=== PATIENT | male | born 1980 | race Two or more races ===

== ENCOUNTER 2024-07-16 08:10 | Day surgery (SDC) | payer MEDICAID, SELFPAY ==
--- NOTE | 2024-07-15 10:55 | SUR.PREOP ---
Addendum entered by Kaylin Le RN 07/15/24 10:58: Liason was done over phone. Original Note: Pt was unable to come in for Liason appt, Dr Patel was notified and agreed for pt to do labs on arrival, pt was instructed to keep NPO after MN and shower before coming for surgery, Pt will be here 3 hrs before surgery.
--- NOTE | 2024-07-15 14:30 | SUR.PREOP ---
PT notified to come in at 0800 tomorrow for labs on arrival and surgery.
[2024-07-16] VITALS (10 sets, daily range): BP systolic 115–132; BP diastolic 75–88; PULSE 63–101; RESP 12–20; TEMP 36.1–36.6; O2SAT 95–100; BMI 24.1
[2024-07-16 09:06] LABS: Basophils # (Auto) 0.1 Thou/mm3 (0.0-0.2); Basophils % (Auto) 1 % (0-2.5); Eosinophils # (Auto) 0.1 Thou/mm3 (0.0-0.5); Eosinophils % (Auto) 1 % (0-10); Hematocrit 42.3 % (41.0-53.0); Hemoglobin 14.9 g/dL (13.5-16.0); Immature Granulocytes % (Auto) 0 % (0-0); Immature Granulocytes Auto 0.03 Thou/mm3 (0.00-0.00); Lymphocytes # (Auto) 3.2 Thou/mm3 (1.0-4.8); Lymphocytes % (Auto) 38 % (10-50); Mean Corpuscular HGB Conc 35.2 g/dl (31.0-37.0); Mean Corpuscular Hemoglobin 30.6 pg (25.0-35.0); Mean Corpuscular Volume 87 fL (80-100); Monocytes # (Auto) 0.7 Thou/mm3 (0.0-0.8); Monocytes % (Auto) 8 % (0-12); Neutrophils # (Auto) 4.3 Thou/mm3 (1.8-7.7); Neutrophils % (Auto) 52 % (37-80); Nucleated Red Blood Cell % 0 /100 WBC (0); Platelet Count 299 Thou/mm3 (140-440); RDW Standard Deviation 39.6 fL (35.1-43.9); Red Blood Count 4.87 Miln/mm3 (4.50-5.90); White Blood Count 8.3 Thou/mm3 (3.8-10.6)
[2024-07-16 09:27] LABS: Anion Gap 6 (7-16); BUN/Creatinine Ratio 19 Ratio (12-20); Blood Urea Nitrogen 15 mg/dL (9-23); Calcium 9.1 mg/dL (8.3-10.6); Carbon Dioxide 26.1 mMol/L (20.0-31.0); Chloride 107 mMol/L (98-107); Creatinine (Component) 0.8 mg/dL (0.6-1.3); Estimated Creatinine Clearance 98.7 mL/min (>60); Glucose 103 mg/dL (74-106); Osmolality,Calculated 278 (275-295); Potassium 3.8 mMol/L (3.4-5.1); Sodium 139 mMol/L (136-145); eGFR > 60 See Note
--- NOTE | 2024-07-16 10:21 | PD.SUROPNT ---
Date of Procedure 07/16/24 Pre Op Diagnosis Incarcerated umbilical hernia Post Op Diagnosis Incarcerated umbilical hernia Procedure Primary repair of incarcerated umbilical hernia Findings 1 cm umbilical hernia defect with incarcerated omentum Procedure Description Patient brought into the operating room in supine position. After administration of general endotracheal anesthesia, patient's abdomen prepped and draped in standard surgical manner. After administration of local anesthesia 3 cm semicircular incision was made below the umbilicus and dissection was deepened into soft tissue. The umbilicus was detached from anterior abdominal fascia. The hernia sac was identified and circumferentially dissected off surrounding tissue. The hernia sac was opened, the contents were incarcerated omentum was reduced. The hernia sac was excised. The defect was closed primarily with interrupted sutures using 0 Prolene. The umbilicus was reattached into anterior abdominal fascia. Soft tissue reapproximated with interrupted sutures using 2-0 Vicryl and the incision was closed with 4 Monocryl in subcuticular fashion. Dermabond applied. Patient tolerated the procedure well. He was extubated, breathing spontaneously and without difficulty and was transferred to postanesthesia care in stable condition. Instruments, needles and sponge counts were reported to be correct x 2. Anesthesia GETA and local Pathology / specimen Other (Hernia sac) Estimated Blood Loss 2 Condition Stable Disposition PACU Surgeon Darshana Patel MD Surgical Staff Operation Date: 07/16/24 11:45 Case Staff EVAPORATIVE COOLER INSTALLER: Timur Villalobos
--- NOTE | 2024-07-16 10:35 | SUR.PHASEI ---
Pt. arrived to recovery via GIACOMO schultz, no c/o pain or nausea at this time, responds to verbal commands, surgical incision to umbilicus, no active bleeding/redness noted, dermabond intact, IV flushed and patent, lung sounds clear, equal expansion xochitl., report received from Charanjit ALAN and Timur MATTHEWS.
--- NOTE | 2024-07-16 11:04 | SUR.PHASEII ---
1104: Pt. AAOx4, vitals stable, breathing unlabored, no complaint of pain or nausea, dressing to ABD CDI, no active bleed noted, report received from Keyana ALAN. Resuming care of pt.
[2024-07-16] MEDS: HYDROmorphone INJ 2 MG/ML VIAL 0.4 MG IV (11:37)
--- NOTE | 2024-07-16 12:06 | SUR.PHASEII ---
1206: Report given to Kathy Flores RN, Pt. AAOx4, vitals stable, breathing unlabored, no complaint of pain or nausea, dermabond to ABD CDI, no active bleed noted, pt. tolerated sips of juice well, ate jello well, pt. meets discharge criteria, pt. is disconnected from vitals machine and waiting for his ride.
--- NOTE | 2024-07-16 12:34 | SUR.PHASEII ---
pt awake, alert, able to follow commands, breathing unlabored, dressing to abdomen clean, dry, and intact, discharge instructions given with spouse present using telephone rehabilitation nurse Zay [id number], all questions answered, pt discharged via wheelchair with all belongings and copies of discharge paperwork.
== END 2024-07-16 12:34 | disposition home or self-care (01) ==
PROVIDERS: PCP Family Medicine; Referring Provider Surgery; Visit Provider Surgery
PROC: (CPT 49592; principal; 2024-07-16 11:30)
DX: K42.0 Umbilical hernia with obstruction, without gangrene (principal)
CPT/HCPCS: 49592; 36415; 80048; 85025; A4217; A4649; J0330; J0690; J2250; J2704; J3010; J3490; J1596

== ENCOUNTER 2024-10-14 11:29 | Emergency (ER) | payer MEDICAID, SELFPAY ==
[2024-10-14 11:30] VITALS: BMI 22.2
[2024-10-14 12:09] VITALS: BP 116/76; PULSE 68; RESP 16; TEMP 36.4; O2SAT 100
--- NOTE | 2024-10-14 12:19 | XR_ITS ---
Examination: PA lateral chest 2 views Technique: Upright PA lateral chest 2 views Exam date and time: October 14, 2024 1349 hrs. Comparison 07/05/2024 Indications: Coughing chest pain body beginning 3 days ago Findings: Mild hyperexpansion Mild opacity in the lingular segment left upper lobe Normal heart size No pulmonary edema Suspicious for 5 mm pulmonary nodule right upper lobe Impression: Suspicious for early pneumonia in the lingular segment left upper lobe, clinical correlation advised Recommend AP lordotic chest follow-up to exclude 5 mm pulmonary nodule right upper lobe
[2024-10-14 12:40] LABS: Strep A Rapid Negative (Negative)
--- NOTE | 2024-10-14 13:41 | EDNOTE_ITS ---
<Statement entered by Nancy Norton MD - 10/17/24 07:01> As co-signing physician, I was present and available for consult prn. I concur with the plan and care as documented by the midlevel provider. Upper Respiratory Inf. RME/HPI General Chief Complaint: Chest Pain Stated Complaint: CHEST PAIN, ABD PAIN, NAUSEA BODYACHE, X3DA Time Seen by Provider: 10/14/24 12:18 Arrival date/time: 10/14/24 11:29 44-year-old male presents emergency dept today for complaints of sore throat, cough, congestion and generalized bodyaches ongoing x 3 days Limitations: no limitations Related Data Previous Rx's ?Medication ?Instructions ?Recorded ibuprofen 800 mg tablet 800 mg PO TID PRN pain #30 t abs 03/19/22 docusate sodium 100 mg capsule 100 mg PO BID #40 caps 07/16/24 (Colace) hydrocodone 5 mg-acetaminophen 325 1 tab PO Q6H PRN pa in (scale score 07/16/24 mg tablet 7-10) #15 tabs ibuprofen 600 mg tablet 600 mg PO Q8H PRN pain (scal e 07/16/24 score 4-6) #15 tabs azithromycin 500 mg tablet See Rx Instructions PO .COM PLEX #6 10/14/24 tabs benzonatate 100 mg capsule 100 mg PO TID #14 caps 04/01 ibuprofen 600 mg tablet 600 mg PO Q6H #30 tabs 10/14 Allergies Allergy/AdvReac Type Severity Reaction Status Date / Time No Known Allergies Allergy Verified 10/14/24 11:32 Review of Systems Review of Systems Systems Reviewed: All systems reviewed, normal except as documented Constitutional Constitutional: Reports system reviewed and no additional complaints, except as documented, Denies fever(s) and Denies headache(s) Eyes Eyes: Reports system reviewed and no additional complaints, except as documented and Denies blurry vision ENT Ears, Nose, Mouth, and Throat: Reports system reviewed and no additional complaints, except as documented, Denies headache(s), Reports nasal congestion and Reports nasal discharge Cardiovascular Cardiovascular: Reports system reviewed and no additional complaints, except as documented, Denies chest pain and Denies dyspnea Respiratory Respiratory: Reports system reviewed and no additional complaints, except as documented, Reports chest congestion, Reports cough and Denies dyspnea Gastrointestinal Gastrointestinal: Reports system reviewed and no additional complaints, except as documented and Denies abdominal pain Integumentary/Breasts Skin/Breast: Reports system reviewed and no additional complaints, except as documented and Denies rash Neurologic Neurologic: Reports system reviewed and no additional complaints, except as documented, Reports as per HPI and Denies headache(s) Past Medical History Past Medical History NEUROLOGIC: Negative Neurological Disorders or Seizures CARDIAC: Negative Cardiac Disorders or Congestive Heart Failure RESPIRATORY: Negative Chronic Obstructive Pulmonary Disease (COPD) GASTROINTESTINAL: Negative Gastrointestinal Disorders or Hepatitis GENITOURINARY: Negative Genitourinary Disorders or Renal Disease MUSCULOSKELETAL: Positive Fractures (nose); Negative Musculoskeletal Disorders ENDOCRINE: Negative Endocrine Disorders, Diabetes Mellitus Type 1 or Diabetes Mellitus Type 2 HEMATOLOGIC: Negative Blood Disorders PSYCHO/SOCIAL: Positive 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, clean now) OTHER HISTORY: Positive Hospitalization (alchohol); Negative Autoimmune Disease, Shingles, Blood Transfusions, Blood Transfusion Reaction, Anesthesia Reactions or Cancer Family History FAMILY HISTORY: Positive Family Surgery; Negative Family Psychiatric Problems, Family Respiratory Disorders, Family Cardiac Disorders, Family Gastrointestinal Problems, Family Cancer or Family Anesthesia Reaction Surgical History SURGICAL: Positive Nose Surgery (septoplasty) Social History SMOKING STATUS: Never smoker ED Exam General Limitations: Present no limitations General appearance: Present alert and in no apparent distress Head Head exam: Present atraumatic, normocephalic and normal inspection Eye Eye exam: Present normal appearance, PERRL and EOMI; Absent conjunctival injection ENT ENT exam: Present normal exam, normal oropharynx and mucous membranes moist Neck Neck exam: Present normal inspection, full ROM and trachea midline Chest Chest inspection: Present normal inspection and symmetric chest wall rise Respiratory Respiratory exam: Present normal lung sounds bilaterally; Absent respiratory distress, wheezes, stridor, accessory muscle use or prolonged expiratory phase Cardiovascular Cardiovascular exam: Present regular rate, normal rhythm and normal heart sounds Abdominal Exam Abdominal exam: Present soft and normal bowel sounds; Absent distention, tenderness, guarding, rebound or rigidity Extremities Exam Extremities exam: Present normal inspection and full ROM Back Exam Back exam: Present normal inspection and full ROM Neurological Exam Neurological exam: Present alert, oriented X3, CN II-XII intact, normal gait and reflexes normal; Absent motor sensory deficit Psychiatric Psychiatric exam: Present normal affect and normal mood Skin Skin exam: Present warm, dry, intact and normal color Course Quality Measures none Orders Category Date Time Status Bedside Influenza A&B Antigen Test NOW Care 10/14/24 12:19 Completed XR chest 2V Stat Exams 10/14/24 12:19 Completed Strep A Rapid Stat Lab 10/14/24 12:22 Completed Vital Signs Vital signs: Vital Signs Temperature 97.5 F 10/14/24 12:09 Pulse Rate 68 10/14/24 12:09 Respiratory Rate 16 10/14/24 12:09 Blood Pressure 116/76 10/14/24 12:09 Pulse Oximetry (%) 100 10/14/24 12:09 Oxygen Delivery Method Room Air 10/14/24 12:09 O2 saturation 100% room air within the limits Upper Respiratory Infection MDM Narrative MDM Narrative:: 44-year-old male presents emergency dept today for complaints of sore throat, cough, congestion and generalized bodyaches ongoing x 3 days On exam patient well-appearing patient is not appear ill or toxic in no acute distress Patient checked for flu and strep both which are negative Chest x-ray obtained consistent with pneumonia patient is a possible pulmonary nodule Explained to the patient after his treatment with antibiotics he is to have repeat x-ray Patient discharged home in no distress to follow-up with primary care doctor in the next 24 to 48 hours and for any worsening symptoms to return to the ER immediately Patient data External records reviewed:: [facility] previous records Clinical information provided by:: patient Social determinants that could affect healthcare access:: none Patient has the following chronic illnesses:: none How is presenting disease/condition affected by chronic disease/condition?: no chronic disease Evaluation data The following diagnostics were reviewed and interpreted by me:: lab results and radiology exam(s) Lab and/or radiology exams considered but not ordered:: Labs and radiology obtained Interpretation Summary: Reviewed by me Medications / Prescriptions Medications or Prescriptions considered but not ordered:: Given Medication administrations:: Given Consultations Consultation(s) initiated? (list below): No Diagnosis Upper Respiratory Differential Diagnosis: upper respiratory infection, sinusitis and viral infection Most likely diagnosis given after review of the tests above:: Pneumonia Admission Indicated Admission indicated?: not indicated Admission Request Was there a request for admission?: No Disposition Plan Disposition Plan: Discharge Discharge Attestation Discharge Attestation: The patient and all family members were given an opportunity to ask questions and understood the discharge instructions. Discharge instructions specifically effects, indications for sooner follow up or return to the emergency department, and the expected course of current diagnosis. Patient condition: Stable Discharge Plan Plan Patient Disposition: HOME (Self Care) Disposition Comment: stable Prescriptions/Referrals Prescriptions/Med Rec: New benzonatate 100 mg capsule 100 mg PO TID Qty: 14 0RF ibuprofen 600 mg tablet 600 mg PO Q6H Qty: 30 0RF azithromycin 500 mg tablet See Rx Instructions .ROUTE .COMPLEX Qty: 6 0RF Rx Instructions: take 500 mg today (day 1), then 250 mg for 4 days (days 2-5) No Action docusate sodium [Colace] 100 mg capsule 100 mg PO BID Qty: 40 0RF hydrocodone-acetaminophen 5-325 mg tablet 1 tab PO Q6H MDD 4 PRN (Reason: pain (scale score 7-10)) Qty: 15 0RF ibuprofen 600 mg tablet 600 mg PO Q8H PRN (Reason: pain (scale score 4-6)) Qty: 15 0RF ibuprofen 800 mg tablet 800 mg PO TID PRN (Reason: pain) Qty: 30 0RF Referrals: Floyd Saab MD [Primary Care Provider] - In 1 week Problem List Clinical Impression: Pneumonia, Cough Patient/Caregiver Discharge Instructions Education Materials: What Is Pneumonia? Additional Instructions: Please follow up with your primary care doctor in the next 24-48hrs for any worsening symptoms return here immediately Please have repeat x-ray in 1 week to rule out pulmonary nodule Print Language: Danish Stand Alone Forms: Bri Award Info., Work/School Release, Patient Portal Info Letter PA/TIRE RECAPPING MACHINE OPERATOR Supervising Physician PA/TIRE RECAPPING MACHINE OPERATOR Supervising Physician: Dr. NORTON
== END 2024-10-14 14:45 | disposition home or self-care (01) ==
PROVIDERS: Nurse Practitioner Primary Care; Emergency Provider Emergency Medicine; PCP Family Medicine
DX: J18.9 Pneumonia, unspecified organism (principal)
CPT/HCPCS: 71046; 87400; 87651; 99283

== ENCOUNTER 2024-10-20 21:33 | Emergency (ER) | payer MEDICAID, SELFPAY ==
[2024-10-20 21:57] VITALS: BP 126/82; PULSE 77; RESP 18; TEMP 36.8; O2SAT 97; BMI 22.1
--- NOTE | 2024-10-20 22:57 | XR_ITS ---
Examination: PA lateral chest 2 views Technique: Upright PA lateral chest 2 views Exam date and time: October 20, 2024, 11 5:00 PM Indications: Pneumonia diagnosed 6 days ago Findings: Right upper lobe pneumonia has cleared Persistent pneumonia lingular segment Normal heart size Impression: Persistent pneumonia in the lingular segment left upper lobe
[2024-10-20 23:48] LABS: Basophils # (Auto) 0.1 Thou/mm3 (0.0-0.2); Basophils % (Auto) 1 % (0-2.5); Eosinophils # (Auto) 0.1 Thou/mm3 (0.0-0.5); Eosinophils % (Auto) 2 % (0-10); Hematocrit 40.5 % (41.0-53.0); Hemoglobin 14.3 g/dL (13.5-16.0); Immature Granulocytes % (Auto) 0 % (0-0); Immature Granulocytes Auto 0.01 Thou/mm3 (0.00-0.00); Lymphocytes # (Auto) 3.7 Thou/mm3 (1.0-4.8); Lymphocytes % (Auto) 42 % (10-50); Mean Corpuscular HGB Conc 35.3 g/dl (31.0-37.0); Mean Corpuscular Hemoglobin 30.1 pg (25.0-35.0); Mean Corpuscular Volume 85 fL (80-100); Monocytes # (Auto) 0.9 Thou/mm3 (0.0-0.8); Monocytes % (Auto) 10 % (0-12); Neutrophils % (Auto) 45 % (37-80); Nucleated Red Blood Cell % 0 /100 WBC (0); Platelet Count 298 Thou/mm3 (140-440); RDW Standard Deviation 37.6 fL (35.1-43.9); Red Blood Count 4.75 Miln/mm3 (4.50-5.90); White Blood Count 8.8 Thou/mm3 (3.8-10.6)
[2024-10-21 00:14] LABS: B-Type Natriuretic Peptide < 20 pg/mL (0-100)
[2024-10-21 00:22] LABS: Alanine Aminotransferase 16 U/L (10-49); Albumin, Serum 4.4 gm/dL (3.5-5.0); Albumin/Globulin Ratio 1.5 (1.2-2.2); Alkaline Phosphatase 49 U/L (46-116); Anion Gap 8 (7-16); Aspartate Amino Transferase 24 U/L (0-34); BUN/Creatinine Ratio 23 Ratio (12-20); Bilirubin,Total 0.6 mg/dL (0.3-1.2); Blood Urea Nitrogen 23 mg/dL (9-23); Calcium 9.1 mg/dL (8.3-10.6); Calcium (Corrected) 9.1 mg/dL (8.5-10.1); Carbon Dioxide 24.9 mMol/L (20.0-31.0); Chloride 106 mMol/L (98-107); Estimated Creatinine Clearance 80.4 mL/min (>60); Glucose 98 mg/dL (74-106); LDH (Lactate Dehydrogenase) 230 U/L (120-246); Osmolality,Calculated 281 (275-295); Potassium 3.1 mMol/L (3.4-5.1); Procalcitonin 0.07 ng/ml (0.0-0.49); Sodium 139 mMol/L (136-145); Total Protein 7.4 gm/dL (5.7-8.2); eGFR > 60 See Note
--- NOTE | 2024-10-21 00:52 | PD.EDADULT ---
ED General RME/HPI General Chief complaint: Weakness Stated complaint: WEAKNESS Time Seen by Provider: 10/20/24 22:36 Arrival date/time: 10/20/24 21:33 44 yo male presents to the ED with a complaint of weakness and cough. He was seen here 1 week ago and diagnosed with Bilateral Pneumonia. He was given Azithromycin which he completed 2 days ago. He was feeling better until yesterday when he began feeling weak with a worsening cough. Mode of arrival: ambulatory Limitations: no limitations Related Data Previous Rx's ?Medication ?Instructions ?Recorded ibuprofen 800 mg tablet 800 mg PO TID PRN pain #30 tabs 03/19/22 docusate sodium 100 mg capsule 100 mg PO BID #40 caps 07/16/24 (Colace) hydrocodone 5 mg-acetaminophen 325 1 tab PO Q6H PRN pain (scale score 07/16/24 mg tablet 7-10) #15 tabs ibuprofen 600 mg tablet 600 mg PO Q8H PRN pain (scale 07/16/24 score 4-6) #15 tabs azithromycin 500 mg tablet See Rx Instructions PO .COMPLEX #6 10/14/24 tabs benzonatate 100 mg capsule 100 mg PO TID #14 caps 10/14/24 ibuprofen 600 mg tablet 600 mg PO Q6H #30 tabs 10/14/24 albuterol sulfate 90 mcg/actuation 2 puff inhalation Q4H PRN 10/21/24 aerosol inhaler shortness of breath or wheezing #6.7 grams amoxicillin 875 mg-potassium 1 tab PO BID PNEUMONIA #20 tabs 10/21/24 clavulanate 125 mg tablet doxycycline monohydrate 100 mg 100 mg PO BID PNEUMONIA #20 caps 10/21/24 capsule promethazine-DM 6.25 mg-15 mg/5 mL 10 ml PO Q8HR PRN cough #118 mL 10/21/24 oral syrup loperamide 2 mg capsule (Imodium 2 mg PO Q6H PRN loose stool #14 10/23/24 A-D) caps Allergies Allergy/AdvReac Type Severity Reaction Status Date / Time No Known Allergies Allergy Verified 10/23/24 07:42 Review of Systems Review of Systems Systems Reviewed: All systems reviewed, normal except as documented Past Medical History Past Medical History NEUROLOGIC: Negative Neurological Disorders or Seizures CARDIAC: Negative Cardiac Disorders or Congestive Heart Failure RESPIRATORY: Negative Chronic Obstructive Pulmonary Disease (COPD) GASTROINTESTINAL: Negative Gastrointestinal Disorders or Hepatitis GENITOURINARY: Negative Genitourinary Disorders or Renal Disease MUSCULOSKELETAL: Positive Fractures (nose); Negative Musculoskeletal Disorders ENDOCRINE: Negative Endocrine Disorders, Diabetes Mellitus Type 1 or Diabetes Mellitus Type 2 HEMATOLOGIC: Negative Blood Disorders PSYCHO/SOCIAL: Positive 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, clean now) OTHER HISTORY: Positive Hospitalization (alchohol); Negative Autoimmune Disease, Shingles, Blood Transfusions, Blood Transfusion Reaction, Anesthesia Reactions or Cancer Family History FAMILY HISTORY: Positive Family Surgery; Negative Family Psychiatric Problems, Family Respiratory Disorders, Family Cardiac Disorders, Family Gastrointestinal Problems, Family Cancer or Family Anesthesia Reaction Surgical History SURGICAL: Positive Nose Surgery (septoplasty) Social History SMOKING STATUS: Never smoker ED Exam Narrative Physical exam: Alert and oriented 44-year-old male, no acute distress. TMs, nares, pharynx are normal. Lungs are diminished at the bases with rhonchi noted. Regular rate and rhythm, abdomen is soft and nontender. General Limitations: Present no limitations General appearance: Present alert and in no apparent distress Head Head exam: Present atraumatic and normal inspection Eye Eye exam: Present normal appearance; Absent scleral icterus or conjunctival injection ENT ENT exam: Present normal exam Neck Neck exam: Present normal inspection Chest Chest inspection: Present normal inspection Respiratory Respiratory exam: Present other (Diminished breath sounds at bases with rhonchi); Absent respiratory distress Cardiovascular Cardiovascular exam: Present regular rate and normal rhythm Abdominal Exam Abdominal exam: Present soft; Absent distention or tenderness Rectal Exam Rectal exam: Present deferred Extremities Exam Extremities exam: Present normal inspection Back Exam Back exam: Present full ROM Neurological Exam Neurological exam: Present alert and oriented X3 Psychiatric Psychiatric exam: Present normal affect and normal mood Skin Skin exam: Present warm, dry, intact and normal color Course Course Course Narrative: 44 yo male presents to the ED with a complaint of weakness and cough. He was seen here 1 week ago and diagnosed with Bilateral Pneumonia. He was given Azithromycin which he completed 2 days ago. He was feeling better until yesterday when he began feeling weak with a worsening cough. Alert and oriented 44-year-old male, no acute distress. TMs, nares, pharynx are normal. Lungs are diminished at the bases with rhonchi noted. Regular rate and rhythm, abdomen is soft and nontender. COVID, influenza A/B swabs negative. CBC reveals normal white count, potassium is mildly low at 3.1 LFTs and renal function are normal. Procalcitonin is normal at 0.07. Cocci serology is ordered and pending. XR Chest: Findings: Right upper lobe pneumonia has cleared Persistent pneumonia lingular segment Normal heart size Impression: Persistent pneumonia in the lingular segment left upper lobe Quality Measures none Orders Category Date Time Status Bedside COVID-19 Antigen Test NOW Care 10/20/24 22:57 Completed Bedside COVID-19 Antigen Test NOW Care 10/21/24 00:18 Completed Bedside Influenza A&B Antigen Test NOW Care 10/20/24 22:59 Completed Bedside Influenza A&B Antigen Test NOW Care 10/21/24 00:18 Completed XR chest 2V Stat Exams 10/20/24 22:57 Completed B-Type Natriuretic Peptide Stat Lab 10/20/24 23:31 Completed CBC Stat Lab 10/20/24 22:57 Completed CMP [Comprehensive Metabolic Panel] Stat Lab 10/20/24 23:31 Completed Cocci Serology IgM with reflex to IgG [Cocci Serology, Lab 10/21/24 00:40 Completed Unk History] Stat LDH (Lactate Dehydrogenase) Stat Lab 10/20/24 23:31 Completed Lactic Acid [Lactate (Lactic Acid)] Stat Lab 10/20/24 23:31 Completed Magnesium Stat Lab 10/20/24 23:31 Completed Procalcitonin Stat Lab 10/20/24 23:31 Completed Potassium Chloride [K-Dur] Med 10/21/24 01:13 Discontinued 40 meq PO X1 ONE cefTRIAXone [Rocephin] 1,000 mg Med 10/21/24 00:37 Discontinued Lidocaine 1% 20 ml [Xylocaine 1% 20 ML] 2.1 ml IM X1 Vital Signs Vital signs: Vital Signs Temperature 98.2 F 10/20/24 21:57 Pulse Rate 77 10/20/24 21:57 Respiratory Rate 18 10/20/24 21:57 Blood Pressure 126/82 10/20/24 21:57 Pulse Oximetry (%) 97 10/20/24 21:57 Oxygen Delivery Method Room Air 10/20/24 21:57 Discharge Plan Plan Patient Disposition: HOME (Self Care) Discharge Disposition comment: Stable Prescriptions/Referrals Prescriptions/Med Rec: New doxycycline monohydrate 100 mg capsule 100 mg PO BID Qty: 20 0RF amoxicillin-pot clavulanate 875-125 mg tablet 1 tab PO BID Qty: 20 0RF albuterol sulfate 90 mcg/actuation HFA aerosol inhaler 2 puff inhalation Q4H PRN (Reason: shortness of breath or wheezing) Qty: 6.7 0RF promethazine-DM 6.25-15 mg/5 mL syrup 10 ml PO Q8HR PRN (Reason: cough) Qty: 118 0RF No Action docusate sodium [Colace] 100 mg capsule 100 mg PO BID Qty: 40 0RF hydrocodone-acetaminophen 5-325 mg tablet 1 tab PO Q6H MDD 4 PRN (Reason: pain (scale score 7-10)) Qty: 15 0RF ibuprofen 600 mg tablet 600 mg PO Q8H PRN (Reason: pain (scale score 4-6)) Qty: 15 0RF benzonatate 100 mg capsule 100 mg PO TID Qty: 14 0RF ibuprofen 600 mg tablet 600 mg PO Q6H Qty: 30 0RF azithromycin 500 mg tablet See Rx Instructions .ROUTE .COMPLEX Qty: 6 0RF Rx Instructions: take 500 mg today (day 1), then 250 mg for 4 days (days 2-5) ibuprofen 800 mg tablet 800 mg PO TID PRN (Reason: pain) Qty: 30 0RF loperamide [Imodium A-D] 2 mg capsule 2 mg PO Q6H PRN (Reason: loose stool) Qty: 14 0RF Referrals: No Primary/Family,Physician [Primary Care Provider] - In 1 week Problem List Clinical Impression: Pneumonia Patient/Caregiver Discharge Instructions Education Materials: When You Have Pneumonia, ED Pneumonia (Adult) Additional Instructions: Follow-up with your primary care physician in 24 to 48 hours. Return to the ED for any new or worsening symptoms. Print Language: Amharic Stand Alone Forms: Bri Award Info., Patient Portal Info Letter PA/SURVEY SUPERINTENDENT Supervising Physician PA/SRIDHAR Supervising Physician: Dr Simmons
[2024-10-21] MEDS: cefTRIAXone 1,000 MG, LIDOCAINE 1% 20 ML 2.1 ML IM (00:53)
[2024-10-21] MEDS: POTASSIUM CHLORIDE 20 mEq TABCR 40 MEQ PO (01:27)
[2024-10-21 12:50] LABS: Cocci Serology, IgM Negative (Negative)
[2024-10-22 11:37] LABS: Cocci Serology, IgG Negative (Negative)
== END 2024-10-21 01:30 | disposition home or self-care (01) ==
PROVIDERS: Physician Assistant; Emergency Provider Emergency Medicine
DX: J18.9 Pneumonia, unspecified organism (principal)
CPT/HCPCS: 36415; 71046; 80053; 83605; 83615; 83735; 83880; 84145; 85025; 86331; 86635; 87400; 87634; 87811; 96372; 99283; J0696; J3490; A9270

== ENCOUNTER 2024-10-23 07:39 | Emergency (ER) | payer MEDICAID, SELFPAY ==
[2024-10-23 07:40] VITALS: BMI 21.4
[2024-10-23 07:50] VITALS: BP 125/78; PULSE 73; RESP 20; TEMP 37; O2SAT 97
--- NOTE | 2024-10-23 07:55 | EDNOTE_ITS ---
Nausea/Vomit./Diarrhea-RME/HPI General Chief complaint: Nausea/Vomiting/Diarrhea Stated complaint: DIARRHEA & PNA Time Seen by Provider: 10/23/24 07:51 Arrival date/time: 10/23/24 07:39 44-year-old male presents to the emergency department today for concerns for diarrhea. Patient is currently being treated for pneumonia. There are no other associated symptoms or aggravating factors no other modifying factors, patient denies taking medication before coming to ER today Limitations: no limitations Related Data Previous Rx's ?Medication ?Instructions ?Recorded ibuprofen 800 mg tablet 800 mg PO TID PRN pain #30 t abs 03/19/22 docusate sodium 100 mg capsule 100 mg PO BID #40 caps 07/16/24 (Colace) hydrocodone 5 mg-acetaminophen 325 1 tab PO Q6H PRN pa in (scale score 07/16/24 mg tablet 7-10) #15 tabs ibuprofen 600 mg tablet 600 mg PO Q8H PRN pain (scal e 07/16/24 score 4-6) #15 tabs azithromycin 500 mg tablet See Rx Instructions PO .COM PLEX #6 10/14/24 tabs benzonatate 100 mg capsule 100 mg PO TID #14 caps 04/01 ibuprofen 600 mg tablet 600 mg PO Q6H #30 tabs 10/14 albuterol sulfate 90 mcg/actuation 2 puff inhalation Q 4H PRN 10/21/24 aerosol inhaler shortness of breath or wheez ing #6.7 grams amoxicillin 875 mg-potassium 1 tab PO BID PNEUMONIA #2 0 tabs 10/21/24 clavulanate 125 mg tablet doxycycline monohydrate 100 mg 100 mg PO BID PNEUMONIA #20 caps 10/21/24 capsule promethazine-DM 6.25 mg-15 mg/5 mL 10 ml PO Q8HR PRN c ough #118 mL 10/21/24 oral syrup loperamide 2 mg capsule (Imodium 2 mg PO Q6H PRN loose stool #14 10/23/24 A-D) caps Allergies Allergy/AdvReac Type Severity Reaction Status Date / Time No Known Allergies Allergy Verified 10/23/24 07:42 Review of Systems Review of Systems Systems Reviewed: All systems reviewed, normal except as documented Constitutional Constitutional: Reports system reviewed and no additional complaints, except as documented, Denies fever(s) and Denies headache(s) Eyes Eyes: Reports system reviewed and no additional complaints, except as documented and Denies blurry vision ENT Ears, Nose, Mouth, and Throat: Reports system reviewed and no additional complaints, except as documented, Denies headache(s), Denies nasal congestion and Denies nasal discharge Cardiovascular Cardiovascular: Reports system reviewed and no additional complaints, except as documented, Denies chest pain and Denies dyspnea Respiratory Respiratory: Reports system reviewed and no additional complaints, except as documented, Denies chest congestion, Denies cough and Denies dyspnea Gastrointestinal Gastrointestinal: Reports system reviewed and no additional complaints, except as documented, Denies abdominal pain, Reports cramping and Reports diarrhea Musculoskeletal Musculoskeletal: Reports system reviewed and no additional complaints, except as documented and Denies back pain Integumentary/Breasts Skin/Breast: Reports system reviewed and no additional complaints, except as documented and Denies rash Neurologic Neurologic: Reports system reviewed and no additional complaints, except as documented, Reports as per HPI and Denies headache(s) Past Medical History Past Medical History NEUROLOGIC: Negative Neurological Disorders or Seizures CARDIAC: Negative Cardiac Disorders or Congestive Heart Failure RESPIRATORY: Negative Chronic Obstructive Pulmonary Disease (COPD) GASTROINTESTINAL: Negative Gastrointestinal Disorders or Hepatitis GENITOURINARY: Negative Genitourinary Disorders or Renal Disease MUSCULOSKELETAL: Positive Fractures (nose); Negative Musculoskeletal Disorders ENDOCRINE: Negative Endocrine Disorders, Diabetes Mellitus Type 1 or Diabetes Mellitus Type 2 HEMATOLOGIC: Negative Blood Disorders PSYCHO/SOCIAL: Positive 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, clean now) OTHER HISTORY: Positive Hospitalization (alchohol); Negative Autoimmune Disease, Shingles, Blood Transfusions, Blood Transfusion Reaction, Anesthesia Reactions or Cancer Family History FAMILY HISTORY: Positive Family Surgery; Negative Family Psychiatric Problems, Family Respiratory Disorders, Family Cardiac Disorders, Family Gastrointestinal Problems, Family Cancer or Family Anesthesia Reaction Surgical History SURGICAL: Positive Nose Surgery (septoplasty) Social History SMOKING STATUS: Never smoker ED Exam General Limitations: Present no limitations General appearance: Present alert and in no apparent distress Head Head exam: Present atraumatic and normocephalic Eye Eye exam: Present normal appearance, PERRL and EOMI; Absent conjunctival injection ENT ENT exam: Present normal exam, normal oropharynx and mucous membranes moist Neck Neck exam: Present normal inspection, full ROM and trachea midline Chest Chest inspection: Present normal inspection and symmetric chest wall rise Respiratory Respiratory exam: Present normal lung sounds bilaterally Cardiovascular Cardiovascular exam: Present regular rate, normal rhythm and normal heart sounds Abdominal Exam Abdominal exam: Present soft and normal bowel sounds; Absent distention, tenderness, guarding, rebound or rigidity Extremities Exam Extremities exam: Present normal inspection and full ROM Back Exam Back exam: Present normal inspection and full ROM Neurological Exam Neurological exam: Present alert, oriented X3 and CN II-XII intact Psychiatric Psychiatric exam: Present normal affect and normal mood Skin Skin exam: Present warm, dry, intact and normal color Course Quality Measures none Orders Category Date Time Status Loperamide [Imodium] Med 10/23/24 07:55 Discontinued 4 mg PO X1 ONE Vital Signs Vital signs: Vital Signs Temperature 98.6 F 10/23/24 07:50 Pulse Rate 73 10/23/24 07:50 Respiratory Rate 20 10/23/24 07:50 Blood Pressure 125/78 10/23/24 07:50 Pulse Oximetry (%) 97 10/23/24 07:50 Oxygen Delivery Method Room Air 10/23/24 07:50 O2 saturation 97% room air within normal limits Nausea/Vomiting/Diarrhea MDM Narrative MDM Narrative:: 44-year-old male presents to the emergency department today for concerns for diarrhea. Patient is currently being treated for pneumonia. There are no other associated symptoms or aggravating factors no other modifying factors, patient denies taking medication before coming to ER today On exam patient well-appearing patient does not appear ill or toxic in no acute distress I reviewed the patient's lab work and imaging from previous visits Patient given Imodium for diarrhea I did explain to the patient if he develops any blood in his stool or diarrhea persist he must return for reevaluation and possible stool sampling Patient discharged home in no distress to follow-up with primary care doctor in the next 24 to 48 hours and for any worsening symptoms to return to the ER immediately Patient data External records reviewed:: [facility] previous records Clinical information provided by:: patient Social determinants that could affect healthcare access:: none Patient has the following chronic illnesses:: None How is presenting disease/condition affected by chronic disease/condition?: no chronic disease Evaluation data The following diagnostics were reviewed and interpreted by me:: other (specify) Lab and/or radiology exams considered but not ordered:: Consider not order Interpretation Summary: N/A Medications / Prescriptions Medications / Prescriptions considered but not ordered:: Given Medication administrations:: Medication Administration History Discontinued Medications Loperamide HCl (Loperamide 2 Mg Capsule) 4 mg PO X1 ONE Stop: 10/23/24 07:56 Given Consultations Consultation(s) initiated? (list below): No Diagnosis Nausea Differential Diagnosis: traveler's diarrhea, food poisoning, gastroenteritis and clostridium difficile infection Most likely diagnosis given after review of the tests above:: Diarrhea Admission Indicated Admission indicated?: not indicated Admission Request Was there a request for admission?: No Disposition Plan Disposition Plan: Discharge Discharge Attestation Discharge Attestation: The patient and all family members were given an opportunity to ask questions and understood the discharge instructions. Discharge instructions specifically effects, indications for sooner follow up or return to the emergency department, and the expected course of current diagnosis. Patient condition: Stable Discharge Plan Plan Patient Disposition: HOME (Self Care) Disposition Comment: Stable Prescriptions/Referrals Prescriptions/Med Rec: New loperamide [Imodium A-D] 2 mg capsule 2 mg PO Q6H PRN (Reason: loose stool) Qty: 14 0RF No Action docusate sodium [Colace] 100 mg capsule 100 mg PO BID Qty: 40 0RF hydrocodone-acetaminophen 5-325 mg tablet 1 tab PO Q6H MDD 4 PRN (Reason: pain (scale score 7-10)) Qty: 15 0RF ibuprofen 600 mg tablet 600 mg PO Q8H PRN (Reason: pain (scale score 4-6)) Qty: 15 0RF benzonatate 100 mg capsule 100 mg PO TID Qty: 14 0RF ibuprofen 600 mg tablet 600 mg PO Q6H Qty: 30 0RF azithromycin 500 mg tablet See Rx Instructions .ROUTE .COMPLEX Qty: 6 0RF Rx Instructions: take 500 mg today (day 1), then 250 mg for 4 days (days 2-5) doxycycline monohydrate 100 mg capsule 100 mg PO BID Qty: 20 0RF amoxicillin-pot clavulanate 875-125 mg tablet 1 tab PO BID Qty: 20 0RF albuterol sulfate 90 mcg/actuation HFA aerosol inhaler 2 puff inhalation Q4H PRN (Reason: shortness of breath or wheezing) Qty: 6.7 0RF promethazine-DM 6.25-15 mg/5 mL syrup 10 ml PO Q8HR PRN (Reason: cough) Qty: 118 0RF ibuprofen 800 mg tablet 800 mg PO TID PRN (Reason: pain) Qty: 30 0RF Problem List Clinical Impression: Diarrhea Patient/Caregiver Discharge Instructions Education Materials: Low-Fiber Diet Additional Instructions: Please follow up with your primary care doctor in the next 24-48hrs for any worsening symptoms return here immediately Print Language: Bolivian Stand Alone Forms: Bri Award Info., Patient Portal Info Letter PA/MANAGER RELOCATION Supervising Physician PA/MANAGER RELOCATION Supervising Physician: Dr Ochoa
[2024-10-23] MEDS: LOPERAMIDE 2 MG CAPSULE 4 MG PO (08:07)
== END 2024-10-23 08:15 | disposition home or self-care (01) ==
LOC: SERX 08:29
PROVIDERS: Emergency Provider Emergency Medicine
DX: R19.7 Diarrhea, unspecified (principal)
CPT/HCPCS: 99282; A9270

== ENCOUNTER 2024-12-26 22:09 | Emergency (ER) | payer MEDICAID, SELFPAY ==
[2024-12-26 23:02] VITALS: BP 114/62; PULSE 65; RESP 18; TEMP 36.6; O2SAT 98
--- NOTE | 2024-12-26 23:17 | EDNOTE_ITS ---
ED Dental RME/HPI General Chief complaint: Dental/Oral/Throat Stated complaint: PAIN IN MOUTH Time Seen by Provider: 12/26/24 23:05 Arrival date/time: 12/26/24 22:09 RME / HPI RME / HPI Narrative: 44-year-old male patient came in for evaluation regarding lesion on the lower inner lip. Patient noticed it for the last few days. Severity of symptoms mild. Denies any other complaints. No medications taken prior to arrival. Related Data Previous Rx's ?Medication ?Instructions ?Recorded ibuprofen 800 mg tablet 800 mg PO TID PRN pain #30 t abs 03/19/22 docusate sodium 100 mg capsule 100 mg PO BID #40 caps 07/16/24 (Colace) hydrocodone 5 mg-acetaminophen 325 1 tab PO Q6H PRN pa in (scale score 07/16/24 mg tablet 7-10) #15 tabs ibuprofen 600 mg tablet 600 mg PO Q8H PRN pain (scal e 07/16/24 score 4-6) #15 tabs azithromycin 500 mg tablet See Rx Instructions PO .COM PLEX #6 10/14/24 tabs benzonatate 100 mg capsule 100 mg PO TID #14 caps 0404/01 ibuprofen 600 mg tablet 600 mg PO Q6H #30 tabs 10/14 albuterol sulfate 90 mcg/actuation 2 puff inhalation Q 4H PRN 10/21/24 aerosol inhaler shortness of breath or wheez ing #6.7 grams amoxicillin 875 mg-potassium 1 tab PO BID PNEUMONIA #2 0 tabs 10/21/24 clavulanate 125 mg tablet doxycycline monohydrate 100 mg 100 mg PO BID PNEUMONIA #20 caps 10/21/24 capsule promethazine-DM 6.25 mg-15 mg/5 mL 10 ml PO Q8HR PRN c ough #118 mL 10/21/24 oral syrup loperamide 2 mg capsule (Imodium 2 mg PO Q6H PRN loose stool #14 10/23/24 A-D) caps nystatin 100,000 unit/mL oral 5 ml PO TID 7 days #105 mL 12/26/24 suspension Allergies Allergy/AdvReac Type Severity Reaction Status Date / Time No Known Allergies Allergy Verified 12/26/24 22:18 Review of Systems Review of Systems Narrative Review of Systems: Review of system reviewed and within normal limits except mentioned in HPI ED Exam Narrative Physical exam: VITAL SIGNS: Reviewed. GENERAL APPEARANCE: Alert and interactive, follows commands, no acute distress, HEAD AND FACE: Non-traumatic. ENT: PERRL, pink conjunctivitis, eyelid no trauma, Mucous membrane moist. Plaque like lesion noted in ner lower lip no bleeding noted NECK: Supple, nontender, no nuchal rigidity. CHEST: No tenderness, no crepitus, no paradoxical movement, no retractions. LUNGS: Clear, well ventilated, symmetric, no rales, no wheezing, no ronchi, no stridor, good breath sounds bilaterally. HEART: Regular rate, regular rhythm, no murmur, no gallops. ABDOMEN: Soft, positive bowel sounds, nondistended, no guarding, nontender, no rebound, no masses, RECTAL: Deferred. GENITAL: Deferred. NEUROLOGICAL: Gross motor function intact sensory function intact, Appropriate for age. MUSCULOSKELETAL: low back nontender, full range of motion. EXTREMITIES: Nontender, full range of motion. SKIN: Color pink, dry, no rash, no lacerations, no abrasions, no contusions. LYMPHATICS: Deferred. Course Quality Measures none Vital Signs Vital signs: Vital Signs Temperature 97.9 F 12/26/24 23:02 Pulse Rate 65 12/26/24 23:02 Respiratory Rate 18 12/26/24 23:02 Blood Pressure 114/62 12/26/24 23:02 Pulse Oximetry (%) 98 12/26/24 23:02 Oxygen Delivery Method Room Air 12/26/24 23:02 Dental / Oral MDM Narrative MDM Narrative:: 44-year-old male patient came in for evaluation regarding lesion on the lower inner lip. Patient noticed it for the last few days. Severity of symptoms mild. Denies any other complaints. No medications taken prior to arrival. Clinically patient is having oral thrush. Patient will be sent home on nystatin liquid. Imaging STANDING this time. Patient denies any medical problem. Denies any history of HIV or hepatitis. Patient data External records reviewed:: None Clinical information provided by:: patient and family Social determinants that could affect healthcare access:: none Patient has the following chronic illnesses:: None How is presenting disease/condition affected by chronic disease/condition?: no chronic disease Evaluation data The following diagnostics were reviewed and interpreted by me:: other (specify) Lab and/or radiology exams considered but not ordered:: None Interpretation Summary: None Medications / Prescriptions Medications or Prescriptions considered but not ordered:: None Medication administrations:: None Consultations Consultation(s) initiated? (list below): No Diagnosis Dental Differential Diagnosis: gingival abscess, dental abscess and other (Oral thrush) Most likely diagnosis given after review of the tests above:: Oral thrush Admission Indicated Admission indicated?: not indicated Explain why admission is indicated or not indicated:: None Admission Request Was there a request for admission?: No Disposition Plan Disposition Plan: Discharge Discharge Attestation Discharge Attestation: The patient and all family members were given an opportunity to ask questions and understood the discharge instructions. Discharge instructions specifically effects, indications for sooner follow up or return to the emergency department, and the expected course of current diagnosis. Patient condition: Stable Discharge Plan Plan Patient Disposition: HOME (Self Care) Discharge Disposition comment: Stable Prescriptions/Referrals Prescriptions/Med Rec: New nystatin 100,000 unit/mL suspension 5 ml PO TID 7 Days Qty: 105 0RF Rx Instructions: swish and swallow No Action docusate sodium [Colace] 100 mg capsule 100 mg PO BID Qty: 40 0RF hydrocodone-acetaminophen 5-325 mg tablet 1 tab PO Q6H MDD 4 PRN (Reason: pain (scale score 7-10)) Qty: 15 0RF ibuprofen 600 mg tablet 600 mg PO Q8H PRN (Reason: pain (scale score 4-6)) Qty: 15 0RF benzonatate 100 mg capsule 100 mg PO TID Qty: 14 0RF ibuprofen 600 mg tablet 600 mg PO Q6H Qty: 30 0RF azithromycin 500 mg tablet See Rx Instructions .ROUTE .COMPLEX Qty: 6 0RF Rx Instructions: take 500 mg today (day 1), then 250 mg for 4 days (days 2-5) doxycycline monohydrate 100 mg capsule 100 mg PO BID Qty: 20 0RF amoxicillin-pot clavulanate 875-125 mg tablet 1 tab PO BID Qty: 20 0RF albuterol sulfate 90 mcg/actuation HFA aerosol inhaler 2 puff inhalation Q4H PRN (Reason: shortness of breath or wheezing) Qty: 6.7 0RF promethazine-DM 6.25-15 mg/5 mL syrup 10 ml PO Q8HR PRN (Reason: cough) Qty: 118 0RF ibuprofen 800 mg tablet 800 mg PO TID PRN (Reason: pain) Qty: 30 0RF loperamide [Imodium A-D] 2 mg capsule 2 mg PO Q6H PRN (Reason: loose stool) Qty: 14 0RF Problem List Clinical Impression: Oral thrush Patient/Caregiver Discharge Instructions Discharge Activity: activity as tolerated Education Materials: [place] Infection: Thrush Additional Instructions: Thank you for the opportunity for serving you today. You are stable for discharged . You are advised to: Follow-up with your PCP in 1 to 2 days Return to ED for worsening of symptoms Increase oral fluids Take medication as prescribed Print Language: Samoan Stand Alone Forms: Bri Award Info., Patient Portal Info Letter PA/WARD HELPER Supervising Physician NERISSA/SRIDHAR Supervising Physician: MD Iris
== END 2024-12-27 00:03 | disposition home or self-care (01) ==
LOC: SERX 23:22
PROVIDERS: Emergency Provider Emergency Medicine; PCP Family Medicine
DX: B37.0 Candidal stomatitis (principal)
CPT/HCPCS: 99281

== ENCOUNTER 2025-01-26 21:28 | Emergency (ER) | payer MEDICAID, SELFPAY ==
[2025-01-26 21:29] VITALS: BP 106/54; PULSE 60; RESP 18; TEMP 36.7; O2SAT 98; BMI 20.3
--- NOTE | 2025-01-26 21:31 | EKG_ITS ---
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
--- NOTE | 2025-01-26 22:18 | XR_ITS ---
Examination: PA lateral chest 2 views TECHNIQUE: Upright PA and lateral chest 2 views Date and time: January 26, 2025 10:22 PM INDICATIONS: Chest pain beginning this morning FINDINGS: Normal heart size No pneumonia or pulmonary edema Mild osteopenia IMPRESSION: No active disease
--- NOTE | 2025-01-26 22:25 | EDNOTE_ITS ---
<Statement entered by Nancy Norton MD - 01/27/25 04:48> As co-signing physician, I was present and available for consult prn. I concur with the plan and care as documented by the midlevel provider. ED Chest Pain RME/HPI General Chief Complaint: Chest Pain Stated Complaint: CHEST PAIN Time Seen by Provider: 01/26/25 22:15 Arrival date/time: 01/26/25 21:28 44M with history of drug use presents to ED with 1 day of CP when coughing, laughing, and moving. Patient denies fall/trauma. Patient has had a cough for 2 weeks. Patient this has been going on intermittently for the past 15 years, but patient hasn't seen specialist. Limitations: no limitations Related Data Previous Rx's ?Medication ?Instructions ?Recorded ibuprofen 800 mg tablet 800 mg PO TID PRN pain #30 t abs 03/19/22 docusate sodium 100 mg capsule 100 mg PO BID #40 caps 07/16/24 (Colace) hydrocodone 5 mg-acetaminophen 325 1 tab PO Q6H PRN pa in (scale score 07/16/24 mg tablet 7-10) #15 tabs ibuprofen 600 mg tablet 600 mg PO Q8H PRN pain (scal e 07/16/24 score 4-6) #15 tabs azithromycin 500 mg tablet See Rx Instructions PO .COM PLEX #6 10/14/24 tabs benzonatate 100 mg capsule 100 mg PO TID #14 caps 04/04/01 ibuprofen 600 mg tablet 600 mg PO Q6H #30 tabs 10/14 albuterol sulfate 90 mcg/actuation 2 puff inhalation Q 4H PRN 10/21/24 aerosol inhaler shortness of breath or wheez ing #6.7 grams amoxicillin 875 mg-potassium 1 tab PO BID PNEUMONIA #2 0 tabs 10/21/24 clavulanate 125 mg tablet doxycycline monohydrate 100 mg 100 mg PO BID PNEUMONIA #20 caps 10/21/24 capsule promethazine-DM 6.25 mg-15 mg/5 mL 10 ml PO Q8HR PRN c ough #118 mL 10/21/24 oral syrup loperamide 2 mg capsule (Imodium 2 mg PO Q6H PRN loose stool #14 10/23/24 A-D) caps Allergies Allergy/AdvReac Type Severity Reaction Status Date / Time No Known Allergies Allergy Verified 01/26/25 21:29 Review of Systems Review of Systems Systems Reviewed: All systems reviewed, normal except as documented Constitutional Constitutional: Reports system reviewed and no additional complaints, except as documented, Denies fever(s) and Denies headache(s) ENT Ears, Nose, Mouth, and Throat: Denies disequilibrium and Denies headache(s) Cardiovascular Cardiovascular: Reports system reviewed and no additional complaints, except as documented, Reports as per HPI, Reports chest pain and Denies dyspnea Respiratory Respiratory: Reports system reviewed and no additional complaints, except as documented, Reports as per HPI, Reports cough and Denies dyspnea Gastrointestinal Gastrointestinal: Reports system reviewed and no additional complaints, except as documented, Denies abdominal pain, Denies nausea and Denies vomiting Neurologic Neurologic: Reports system reviewed and no additional complaints, except as documented, Denies confusion, Denies disequilibrium and Denies headache(s) Psychiatric Psychiatric: Denies confusion Past Medical History Past Medical History NEUROLOGIC: Negative Neurological Disorders or Seizures CARDIAC: Negative Cardiac Disorders or Congestive Heart Failure RESPIRATORY: Negative Chronic Obstructive Pulmonary Disease (COPD) GASTROINTESTINAL: Negative Gastrointestinal Disorders or Hepatitis GENITOURINARY: Negative Genitourinary Disorders or Renal Disease MUSCULOSKELETAL: Positive Fractures (nose); Negative Musculoskeletal Disorders ENDOCRINE: Negative Endocrine Disorders, Diabetes Mellitus Type 1 or Diabetes Mellitus Type 2 HEMATOLOGIC: Negative Blood Disorders PSYCHO/SOCIAL: Positive 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, clean now) OTHER HISTORY: Positive Hospitalization (alchohol); Negative Autoimmune Disease, Shingles, Blood Transfusions, Blood Transfusion Reaction, Anesthesia Reactions or Cancer Family History FAMILY HISTORY: Positive Family Surgery; Negative Family Psychiatric Problems, Family Respiratory Disorders, Family Cardiac Disorders, Family Gastrointestinal Problems, Family Cancer or Family Anesthesia Reaction Surgical History SURGICAL: Positive Nose Surgery (septoplasty) Social History SMOKING STATUS: Never smoker ED Exam General Limitations: Present no limitations General appearance: Present alert and in no apparent distress Head Head exam: Present atraumatic Eye Eye exam: Present normal appearance, PERRL and EOMI ENT ENT exam: Present normal exam, normal oropharynx and mucous membranes moist Neck Neck exam: Present normal inspection, full ROM and trachea midline Chest Chest inspection: Present normal inspection and symmetric chest wall rise Respiratory Respiratory exam: Present normal lung sounds bilaterally Cardiovascular Cardiovascular exam: Present regular rate, normal rhythm and normal heart sounds Abdominal Exam Abdominal exam: Present soft and normal bowel sounds Extremities Exam Extremities exam: Present normal inspection and full ROM Back Exam Back exam: Present normal inspection and full ROM Neurological Exam Neurological exam: Present alert, oriented X3 and CN II-XII intact Psychiatric Psychiatric exam: Present normal affect and normal mood Skin Skin exam: Present warm, dry, intact and normal color Course Quality Measures none Orders Category Date Time Status EKG (ED ONLY) *Do not use* NOW Care 01/26/25 21:31 Completed EKG (ED Only) Stat Exams 01/26/25 21:31 Draft XR chest 2V Stat Exams 01/26/25 22:18 Completed CBC Stat Lab 01/26/25 22:30 Completed CMP [Comprehensive Metabolic Panel] Stat Lab 01/26/25 22:30 Completed D-Dimer Stat Lab 01/26/25 22:30 Completed Troponin I Stat Lab 01/26/25 22:30 Completed Diazepam [Valium] Med 01/26/25 22:17 Discontinued 10 mg PO X1 ONE Famotidine [Pepcid] Med 01/26/25 22:17 Discontinued 20 mg PO X1 ONE MethylPREDNISolone.* [SoluMEDROL Inj] Med 01/26/25 22:17 Discontinued 125 mg IM X1 ONE Ondansetron Odt [Zofran Odt] Med 01/26/25 22:17 Discontinued 4 mg PO X1 ONE Vital Signs Vital signs: Vital Signs Temperature 98.0 F 01/26/25 21:29 Pulse Rate 60 01/26/25 21:29 Respiratory Rate 18 01/26/25 21:29 Blood Pressure 106/54 L 01/26/25 21:29 Pulse Oximetry (%) 98 01/26/25 21:29 Oxygen Delivery Method Room Air 01/26/25 21:29 O2 at 98% on RA and WNLs Chest Pain MDM Narrative MDM Narrative:: 44M with history of drug use presents to ED with 1 day of CP when coughing, laughing, and moving. Patient denies fall/trauma. Patient has had a cough for 2 weeks. Patient this has been going on intermittently for the past 15 years, but patient hasn't seen specialist. Physical exam reveals clear lungs and normal WOB. No chest wall tenderness. Patient is afebrile, calm, and alert. EKG is NSR. CXR normal. Trop normal. D-dimer normal. Patient data External records reviewed:: [facility] previous records Clinical information provided by:: patient Social determinants that could affect healthcare access:: substance use Patient has the following chronic illnesses:: drug use How is presenting disease/condition affected by chronic disease/condition?: exacerbated by Evaluation data The following diagnostics were reviewed and interpreted by me:: lab results, radiology exam(s) and EKG tracing(s) Lab and/or radiology exams considered but not ordered:: ordered Interpretation Summary: above Medications / Prescriptions Medications or Prescriptions considered but not ordered:: not ordered Medication administrations:: Medication Administration History Discontinued Medications Diazepam (Diazepam 5 Mg Tablet) 10 mg PO X1 ONE Stop: 01/26/25 22:18 Last Admin: 01/26/25 22:21 Dose: Not Given Documented By: OA Non-Admin Reason: Discontinued Famotidine (Famotidine 20 Mg Tablet) 20 mg PO X1 ONE Stop: 01/26/25 22:18 Last Admin: 01/26/25 22:21 Dose: Not Given Documented By: OA Non-Admin Reason: Discontinued Methylprednisolone Sodium Succinate (Methylprednisolone Sod Succ 62.5 Mg/Ml 2ml Vial) 125 mg IM X1 ONE Stop: 01/26/25 22:18 Last Admin: 01/26/25 22:21 Dose: Not Given Documented By: OA Non-Admin Reason: Discontinued Ondansetron HCl (Ondansetron Odt 4 Mg Tabrap) 4 mg PO X1 ONE; Protocol Stop: 01/26/25 22:18 Last Admin: 01/26/25 22:21 Dose: Not Given Documented By: OA Non-Admin Reason: Discontinued wrong patient; n/a Consultations Consultation(s) initiated? (list below): No Diagnosis Chest Pain Differential Diagnosis: fracture of rib, pneumothorax, stable angina, unstable angina pectoris, atypical chest pain, st elevation myocardial infarction, costochondritis, chest pain, biliary colic and other (CAP, PE) Most likely diagnosis given after review of the tests above:: atypical chest pain Admission Indicated Admission indicated?: not indicated Admission Request Was there a request for admission?: No Disposition Plan Disposition Plan: Discharge Discharge Attestation Discharge Attestation: The patient and all family members were given an opportunity to ask questions and understood the discharge instructions. Discharge instructions specifically effects, indications for sooner follow up or return to the emergency department, and the expected course of current diagnosis. Patient condition: Stable Discharge Plan Plan Patient Disposition: HOME (Self Care) Discharge Disposition comment: Stable Prescriptions/Referrals Prescriptions/Med Rec: No Action docusate sodium [Colace] 100 mg capsule 100 mg PO BID Qty: 40 0RF hydrocodone-acetaminophen 5-325 mg tablet 1 tab PO Q6H MDD 4 PRN (Reason: pain (scale score 7-10)) Qty: 15 0RF ibuprofen 600 mg tablet 600 mg PO Q8H PRN (Reason: pain (scale score 4-6)) Qty: 15 0RF benzonatate 100 mg capsule 100 mg PO TID Qty: 14 0RF ibuprofen 600 mg tablet 600 mg PO Q6H Qty: 30 0RF azithromycin 500 mg tablet See Rx Instructions .ROUTE .COMPLEX Qty: 6 0RF Rx Instructions: take 500 mg today (day 1), then 250 mg for 4 days (days 2-5) doxycycline monohydrate 100 mg capsule 100 mg PO BID Qty: 20 0RF amoxicillin-pot clavulanate 875-125 mg tablet 1 tab PO BID Qty: 20 0RF albuterol sulfate 90 mcg/actuation HFA aerosol inhaler 2 puff inhalation Q4H PRN (Reason: shortness of breath or wheezing) Qty: 6.7 0RF promethazine-DM 6.25-15 mg/5 mL syrup 10 ml PO Q8HR PRN (Reason: cough) Qty: 118 0RF ibuprofen 800 mg tablet 800 mg PO TID PRN (Reason: pain) Qty: 30 0RF loperamide [Imodium A-D] 2 mg capsule 2 mg PO Q6H PRN (Reason: loose stool) Qty: 14 0RF Referrals: No Primary/Family,Physician [Primary Care Provider] - In 1 week Problem List Clinical Impression: Atypical chest pain Patient/Caregiver Discharge Instructions Education Materials: ED Chest Pain, Uncertain Cause Additional Instructions: Please follow-up with PCP within 24-48 hours and return immediately if symptoms worsen. Print Language: Zimbabwean Stand Alone Forms: Patient Portal Info Letter PA/[employer] Supervising Physician PA/[employer] Supervising Physician: Dr. Norton
[2025-01-26 22:50] LABS: Basophils # (Auto) 0.1 Thou/mm3 (0.0-0.2); Basophils % (Auto) 1 % (0-2.5); Eosinophils # (Auto) 0.2 Thou/mm3 (0.0-0.5); Eosinophils % (Auto) 2 % (0-10); Hematocrit 37.2 % (41.0-53.0); Hemoglobin 13.3 g/dL (13.5-16.0); Immature Granulocytes Auto 0.02 Thou/mm3 (0.00-0.00); Lymphocytes # (Auto) 4.1 Thou/mm3 (1.0-4.8); Lymphocytes % (Auto) 47 % (10-50); Mean Corpuscular HGB Conc 35.8 g/dl (31.0-37.0); Mean Corpuscular Hemoglobin 30.2 pg (25.0-35.0); Mean Corpuscular Volume 85 fL (80-100); Monocytes # (Auto) 0.7 Thou/mm3 (0.0-0.8); Monocytes % (Auto) 9 % (0-12); Neutrophils # (Auto) 3.6 Thou/mm3 (1.8-7.7); Neutrophils % (Auto) 42 % (37-80); Nucleated Red Blood Cell # 0.00 Thou/mm3 (0.00-0.00); Nucleated Red Blood Cell % 0 /100 WBC (0); Platelet Count 273 Thou/mm3 (140-440); RDW Standard Deviation 36.9 fL (35.1-43.9); Red Blood Count 4.40 Miln/mm3 (4.50-5.90); White Blood Count 8.7 Thou/mm3 (3.8-10.6)
[2025-01-26 23:06] LABS: Alanine Aminotransferase 13 U/L (10-49); Albumin, Serum 4.0 gm/dL (3.5-5.0); Albumin/Globulin Ratio 1.5 (1.2-2.2); Alkaline Phosphatase 39 U/L (46-116); Anion Gap 8 (7-16); Aspartate Amino Transferase 22 U/L (0-34); BUN/Creatinine Ratio 17 Ratio (12-20); Bilirubin,Total 0.6 mg/dL (0.3-1.2); Blood Urea Nitrogen 15 mg/dL (9-23); Calcium 8.9 mg/dL (8.3-10.6); Calcium (Corrected) 8.9 mg/dL (8.5-10.1); Carbon Dioxide 25.7 mMol/L (20.0-31.0); Chloride 105 mMol/L (98-107); Creatinine (Component) 0.9 mg/dL (0.6-1.3); Estimated Creatinine Clearance 87.4 mL/min (>60); Globulin 2.7 gm/dL (2.3-3.5); Glucose 97 mg/dL (74-106); Osmolality,Calculated 278 (275-295); Potassium 3.8 mMol/L (3.4-5.1); Sodium 139 mMol/L (136-145); Total Protein 6.7 gm/dL (5.7-8.2); Troponin I < 0.002 ng/mL (0.0-0.045); eGFR > 60 See Note
[2025-01-26 23:08] LABS: D-Dimer < 250 ng/mL (<600)
[2025-01-26 23:37] VITALS: BP 112/69; PULSE 64; RESP 17; TEMP 36.4; O2SAT 98
== END 2025-01-26 23:39 | disposition home or self-care (01) ==
PROVIDERS: Physician Assistant; Emergency Provider Emergency Medicine
DX: R07.89 Other chest pain (principal); R05.9 Cough, unspecified
CPT/HCPCS: 36415; 71046; 80053; 84484; 85025; 85379; 93005; 99283

== ENCOUNTER 2025-06-23 16:53 | Emergency (ER) | payer MEDICAID, SELFPAY ==
[2025-06-23 17:10] VITALS: BP 128/82; PULSE 62; RESP 20; TEMP 36.5; O2SAT 98; BMI 19.7
--- NOTE | 2025-06-23 17:16 | XR_ITS ---
Examination: Hand, left 3 views Technique: Hand AP, oblique, lateral 3 views Date and time of exam: June 23, 2025, 1782 hours INDICATIONS: Left hand swelling and pain today FINDINGS: Adequate bone density No acute fracture No dislocation Soft tissue swelling dorsum of the hand IMPRESSION: Soft tissue swelling dorsum of the hand No fracture No opaque foreign body
--- NOTE | 2025-06-23 17:37 | EDNOTE_ITS ---
<Statement entered by Nancy Norton MD - 07/08/25 07:22> As co-signing physician, I was present and available for consult prn. I concur with the plan and care as documented by the midlevel provider. Upper Extremity Injury RME/HPI General Chief Complaint: Hand/Wrist Problems Stated Complaint: L) HAND SWOLLEN/WARM, L) KNEE BUMP, ABD PAIN, BENITO Time Seen by Provider: 06/23/25 17:11 Arrival date/time: 06/23/25 16:53 45-year-old male presents to the Emergency Department today for complaints of insect bite to the left hand with swelling as well as what he believes is an insect bite to his left knee Limitations: no limitations Related Data Previous Rx's ?Medication ?Instructions ?Recorded ibuprofen 800 mg tablet 800 mg PO TID PRN pain #30 t abs 03/19/22 docusate sodium 100 mg capsule 100 mg PO BID #40 caps 07/16/24 (Colace) hydrocodone 5 mg-acetaminophen 325 1 tab PO Q6H PRN pa in (scale score 07/16/24 mg tablet 7-10) #15 tabs ibuprofen 600 mg tablet 600 mg PO Q8H PRN pain (scal e 07/16/24 score 4-6) #15 tabs azithromycin 500 mg tablet See Rx Instructions PO .COM PLEX #6 10/14/24 tabs benzonatate 100 mg capsule 100 mg PO TID #14 caps 04/01 ibuprofen 600 mg tablet 600 mg PO Q6H #30 tabs 10/14 albuterol sulfate 90 mcg/actuation 2 puff inhalation Q 4H PRN 10/21/24 aerosol inhaler shortness of breath or wheez ing #6.7 grams amoxicillin 875 mg-potassium 1 tab PO BID PNEUMONIA #2 0 tabs 10/21/24 clavulanate 125 mg tablet doxycycline monohydrate 100 mg 100 mg PO BID PNEUMONIA #20 caps 10/21/24 capsule promethazine-DM 6.25 mg-15 mg/5 mL 10 ml PO Q8HR PRN c ough #118 mL 10/21/24 oral syrup loperamide 2 mg capsule (Imodium 2 mg PO Q6H PRN loose stool #14 10/23/24 A-D) caps clindamycin HCl 300 mg capsule 300 mg PO TID 7 days #2 1 caps 06/23/25 diphenhydramine HCl 25 mg capsule 25 mg PO Q8H PRN all ergic symptoms 06/23/25 (Benadryl) #30 caps ibuprofen 600 mg tablet 600 mg PO Q6H #30 tabs 06/23 prednisone 20 mg tablet 20 mg PO BID 3 days #6 tabs 06/23/25 Allergies Allergy/AdvReac Type Severity Reaction Status Date / Time No Known Allergies Allergy Verified 06/23/25 16:57 Review of Systems Review of Systems Systems Reviewed: All systems reviewed, normal except as documented Constitutional Constitutional: Reports system reviewed and no additional complaints, except as documented, Denies fever(s) and Denies headache(s) Eyes Eyes: Reports system reviewed and no additional complaints, except as documented and Denies blurry vision ENT Ears, Nose, Mouth, and Throat: Reports system reviewed and no additional complaints, except as documented, Denies headache(s), Denies nasal congestion and Denies nasal discharge Cardiovascular Cardiovascular: Reports system reviewed and no additional complaints, except as documented, Denies chest pain and Denies dyspnea Respiratory Respiratory: Reports system reviewed and no additional complaints, except as documented, Denies chest congestion, Denies cough and Denies dyspnea Gastrointestinal Gastrointestinal: Reports system reviewed and no additional complaints, except as documented and Denies abdominal pain Integumentary/Breasts Skin/Breast: Reports system reviewed and no additional complaints, except as documented, Denies rash and Reports other (Swelling left hand, erythema) Neurologic Neurologic: Reports system reviewed and no additional complaints, except as documented, Reports as per HPI and Denies headache(s) Past Medical History Past Medical History NEUROLOGIC: Negative Neurological Disorders or Seizures CARDIAC: Negative Cardiac Disorders or Congestive Heart Failure RESPIRATORY: Negative Chronic Obstructive Pulmonary Disease (COPD) GASTROINTESTINAL: Negative Gastrointestinal Disorders or Hepatitis GENITOURINARY: Negative Genitourinary Disorders or Renal Disease MUSCULOSKELETAL: Positive Fractures (nose); Negative Musculoskeletal Disorders ENDOCRINE: Negative Endocrine Disorders, Diabetes Mellitus Type 1 or Diabetes Mellitus Type 2 HEMATOLOGIC: Negative Blood Disorders PSYCHO/SOCIAL: Positive 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, clean now) OTHER HISTORY: Positive Hospitalization (alchohol); Negative Autoimmune Disease, Shingles, Blood Transfusions, Blood Transfusion Reaction, Anesthesia Reactions or Cancer Family History FAMILY HISTORY: Positive Family Surgery; Negative Family Psychiatric Problems, Family Respiratory Disorders, Family Cardiac Disorders, Family Gastrointestinal Problems, Family Cancer or Family Anesthesia Reaction Surgical History SURGICAL: Positive Nose Surgery (septoplasty) Social History SMOKING STATUS: Never smoker ED Exam General Limitations: Present no limitations General appearance: Present alert and in no apparent distress Head Head exam: Present atraumatic, normocephalic and normal inspection Eye Eye exam: Present normal appearance, PERRL and EOMI; Absent conjunctival injection ENT ENT exam: Present normal exam, normal oropharynx and mucous membranes moist Neck Neck exam: Present normal inspection, full ROM and trachea midline Chest Chest inspection: Present normal inspection and symmetric chest wall rise Respiratory Respiratory exam: Present normal lung sounds bilaterally Cardiovascular Cardiovascular exam: Present regular rate, normal rhythm and normal heart sounds Abdominal Exam Abdominal exam: Present soft and normal bowel sounds Extremities Exam Extremities exam: Present full ROM, tenderness, normal capillary refill and other (Erythema, swelling left hand dorsal aspect); Absent joint swelling Back Exam Back exam: Present normal inspection and full ROM Neurological Exam Neurological exam: Present alert, oriented X3 and CN II-XII intact Psychiatric Psychiatric exam: Present normal affect and normal mood Skin Skin exam: Present warm, dry and other (Erythema, swelling left hand dorsal aspect) Course Quality Measures none Orders Category Date Time Status XR hand comp LT min 3V Stat Exams 06/23/25 17:16 Completed DiphenhydrAMINE [Benadryl] Med 06/23/25 17:16 Discontinued 25 mg PO X1 ONE Lidocaine 1% Vial 20 ml [Xylocaine 1% 20 ML] Med 06/23/25 17:16 Discontinued 2.1 ml INFL X1 ONE cefTRIAXone [Rocephin] Med 06/23/25 17:16 Discontinued 1,000 mg IM X1 ONE dexAMETHasone INJ [Decadron Inj] Med 06/23/25 17:16 Discontinued 10 mg PO X1 ONE Vital Signs Vital signs: Vital Signs Temperature 97.7 F 06/23/25 17:10 Pulse Rate 62 06/23/25 17:10 Respiratory Rate 20 06/23/25 17:10 Blood Pressure 128/82 06/23/25 17:10 Pulse Oximetry (%) 98 06/23/25 17:10 Oxygen Delivery Method Room Air 06/23/25 17:10 O2 saturation 98% on room air within normal limits Extremity Injury MDM Narrative MDM Narrative:: 45-year-old male presents to the Emergency Department today for complaints of insect bite to the left hand with swelling as well as what he believes is an insect bite to his left knee On exam patient appears to have insect bite with localized swelling to the left hand and left knee left knee shows no swelling Imaging of left hand obtained no acute fracture no radiopaque foreign bodies no bony abnormality Patient has full range of motion of all fingers and of his knee Patient will be treated course of antibiotics, Benadryl, steroids Patient discharged home in no distress to follow-up with primary care doctor in the next 24 to 48 hours and for any worsening symptoms to return to the ER immediately Patient data External records reviewed:: [facility] previous records Clinical information provided by:: patient Social determinants that could affect healthcare access:: none Patient has the following chronic illnesses:: See history How is presenting disease/condition affected by chronic disease/condition?: uneffected by Evaluation data The following diagnostics were reviewed and interpreted by me:: radiology exam(s) Lab and/or radiology exams considered but not ordered:: Radiology obtained Interpretation Summary: Reviewed by me Medications / Prescriptions Medications or Prescriptions considered but not ordered:: Given Medication administrations:: Medication Administration History Discontinued Medications Ceftriaxone Sodium (Ceftriaxone Sod Inj 1,000 Mg Vial) 1,000 mg IM X1 ONE Stop: 06/23/25 17:17 Last Admin: 06/23/25 18:37 Dose: 1,000 mg Documented By: Dexamethasone Sodium Phosphate (Dexamethasone Sod Phos Inj 10 Mg/Ml Vial) 10 mg PO X1 ONE Stop: 06/23/25 17:17 Last Admin: 06/23/25 18:37 Dose: 10 mg Documented By: Comments: provider ok'd to give po Diphenhydramine HCl (Diphenhydramine 25 Mg Capsule) 25 mg PO X1 ONE Stop: 06/23/25 17:17 Last Admin: 06/23/25 18:36 Dose: 25 mg Documented By: Lidocaine HCl (Lidocaine Hcl 1% 20 Ml Vial) 2.1 ml INFL X1 ONE Stop: 06/23/25 17:17 Last Admin: 06/23/25 18:37 Dose: 2.1 ml Documented By: Given Consultations Consultation(s) initiated? (list below): No Diagnosis Upper Extremity Injury Differential Diagnosis: sprain and strain of wrist, fracture of hand and other Most likely diagnosis given after review of the tests above:: Insect bite Admission Indicated Admission indicated?: not indicated Admission Request Was there a request for admission?: No Disposition Plan Disposition Plan: Discharge Discharge Attestation Discharge Attestation: The patient and all family members were given an opportunity to ask questions and understood the discharge instructions. Discharge instructions specifically effects, indications for sooner follow up or return to the emergency department, and the expected course of current diagnosis. Patient condition: Stable Discharge Plan Plan Patient Disposition: HOME (Self Care) Discharge Disposition comment: Stable Prescriptions/Referrals Prescriptions/Med Rec: New clindamycin HCl 300 mg capsule 300 mg PO TID 7 Days Qty: 21 0RF prednisone 20 mg tablet 20 mg PO BID 3 Days Qty: 6 0RF diphenhydramine HCl [Benadryl] 25 mg capsule 25 mg PO Q8H PRN (Reason: allergic symptoms) Qty: 30 0RF ibuprofen 600 mg tablet 600 mg PO Q6H Qty: 30 0RF No Action docusate sodium [Colace] 100 mg capsule 100 mg PO BID Qty: 40 0RF hydrocodone-acetaminophen 5-325 mg tablet 1 tab PO Q6H MDD 4 PRN (Reason: pain (scale score 7-10)) Qty: 15 0RF ibuprofen 600 mg tablet 600 mg PO Q8H PRN (Reason: pain (scale score 4-6)) Qty: 15 0RF benzonatate 100 mg capsule 100 mg PO TID Qty: 14 0RF ibuprofen 600 mg tablet 600 mg PO Q6H Qty: 30 0RF azithromycin 500 mg tablet See Rx Instructions .ROUTE .COMPLEX Qty: 6 0RF Rx Instructions: take 500 mg today (day 1), then 250 mg for 4 days (days 2-5) doxycycline monohydrate 100 mg capsule 100 mg PO BID Qty: 20 0RF amoxicillin-pot clavulanate 875-125 mg tablet 1 tab PO BID Qty: 20 0RF albuterol sulfate 90 mcg/actuation HFA aerosol inhaler 2 puff inhalation Q4H PRN (Reason: shortness of breath or wheezing) Qty: 6.7 0RF promethazine-DM 6.25-15 mg/5 mL syrup 10 ml PO Q8HR PRN (Reason: cough) Qty: 118 0RF ibuprofen 800 mg tablet 800 mg PO TID PRN (Reason: pain) Qty: 30 0RF loperamide [Imodium A-D] 2 mg capsule 2 mg PO Q6H PRN (Reason: loose stool) Qty: 14 0RF Problem List Clinical Impression: Localized swelling on left hand Patient/Caregiver Discharge Instructions Additional Instructions: Please follow up with your primary care doctor in the next 24-48hrs for any worsening symptoms return here immediately Print Language: German Stand Alone Forms: Bri Award Info., Work/School Release, Patient Portal Info Letter PA/[employer] Supervising Physician PA/[employer] Supervising Physician: Dr. norton
[2025-06-23] MEDS: cefTRIAXone SOD INJ 1,000 MG VIAL 1000 MG IM (18:37)
[2025-06-23] MEDS: LIDOCAINE HCL 1% 20 ML VIAL 2.1 ML INFL (18:37)
== END 2025-06-23 18:45 | disposition home or self-care (01) ==
LOC: SERX 18:37
PROVIDERS: Emergency Provider Emergency Medicine
DX: R22.32 Localized swelling, mass and lump, left upper limb (principal)
CPT/HCPCS: 73130; 96372; 99283; J0696; J1100; J3490; A9270